=== PATIENT | female | born 1980 | race Caucasian/White ===

== ENCOUNTER → 2023-02-22 | Emergency (ER) | payer BC ==
[~2023-02-22] VITALS: Ht 157.5 cm; Wt 52.3 kg
[~2023-02-22] MED LIST: FLO0.4C PO; HYDR-3965 PO; IBUP-1986 PO; ketorolac trometh. 30mg/ml inj. IV ONE; ketorolac tromethamine 15mg/ml inj. IV ONE; ondansetron 4mg rapidly disintigrating tab PO ONE
[2023-02-22 05:24] VITALS: BP 161/76; PULSE 77; RESP 17; TEMP 98.1; O2SAT 100
[2023-02-22 08:51] LABS: URINE HCG NEGATIVE (NEG)
[2023-02-22 08:54] LABS: BILIRUBIN,URINE NEGATIVE (Neg); CLARITY,URINE CLOUDY (Clear); COLOR,URINE YELLOW (Yellow); GLUCOSE, URINE NEGATIVE (Neg); KETONES,URINE NEGATIVE (Neg); LEUKOCYTE ESTERASE ,URINE NEGATIVE (Neg); NITRITES, URINE NEGATIVE (Neg); OCCULT BLOOD,URINE LARGE (Neg); PH,URINE 8.5 (4.8-8.0); PROTEIN,URINE TRACE mg/dl (Neg); UROBILINOGEN,URINE 0.2 E.U/dL (0.2-1.0)
[2023-02-22 09:16] LABS: UA COLLECTION TYPE CLN CATCH MIDSTREAM
[2023-02-22 09:17] LABS: BACTERIA,URINE FEW /HPF (Neg); MUCUS STRANDS FEW /LPF (Neg); RBC,URINE 20-50 /HPF (0-2); SQUAMOUS EPITHELIAL CELL,UR MANY /LPF (FEW); WBC,URINE 0-4 /HPF (0-4)
== END | disposition home or self-care (01) ==
LOC: ER 05:20
DX: N20.0 Calculus of kidney (principal)
CPT/HCPCS: 74176; 81001; 81025; 96374; 99285; J1885